=== PATIENT | female | born 1940 | race Caucasian/White ===

== ENCOUNTER 2017-01-24 08:36 | Day surgery (SDC) | payer MEDICARE, OTHER ==
[~2017-01-24] VITALS: Ht 175.3 cm; Wt 67.0 kg
[~2017-01-24 08:36] MED LIST: 0.9% Sodium Chloride 1,000 ML IV SCH; Sodium Chloride LOK Flush 10 mL Syringe IV PRN; fentaNYL-PF 50 mCg/mL 2 mL Inj IVPUSH PRN
[2017-01-24 09:09] VITALS: BP 115/72; PULSE 64; RESP 16; O2SAT 69
[2017-01-24] MEDS ORDERED: CHOL100043 PO (09:16)
[2017-01-24] MEDS ORDERED: MELO-253 PO (09:16)
[2017-01-24] MEDS ORDERED: CLOP75TA28 PO (09:16)
[2017-01-24] MEDS ORDERED: VIT1CAPS8 PO (09:16)
[2017-01-24] MEDS ORDERED: MULT1CAP33 PO (09:16)
[2017-01-24] MEDS ORDERED: AMLO1TAB20 PO (09:16)
[2017-01-24] MEDS ORDERED: OMEG1000 PO (09:16)
[2017-01-24] MEDS ORDERED: OXYB5TAB PO (09:16)
--- NOTE | 2017-01-24 10:01 | PCM.ENDCOL ---
Colonoscopy Date of Service: January 24, 2017 Physician Neal Cutler MD Pre Procedure Diagnosis: Screening Post Procedure Dx & Findings: Polyp hemorrhoids diverticuli patch of colitis Procedure Colonoscopy PROCEDURE IN DETAIL: Prep adequate Withdrawal time 9 minutes After unremarkable rectal examination the Olympus video colonoscope was inserted patient's anal canal and was advanced to cecum. Landmarks were identified including the ileocecal valve and appendiceal orifice. Scope was withdrawn systematically. Visualized colonic mucosa showed healthy shiny mucosa with normal healthy-appearing vasculature. In the descending colon there were 2 polyps. These were about 1 mm in size. These were both resected completely using cold forceps. 30 cm from the anal verge, there was a 4 cm patch of inflammation and redness edema. This was biopsied. Diverticuli mostly in the sigmoid however a few isolated ones are found all the way to the ascending colon. In the rectum retroflexion was done which showed hemorrhoids. Anal canal was inspected carefully on the way out and hemorrhoids noted. Impression Polyp 2 status post complete removal Diverticuli Patch of colitis Hemorrhoids Recommendation Repeat colonoscopy 5 years Diverticula diet Presedation Assessment Risks and Benefits Informed consent was obtained from the patient after all risks and benefits including but not limited to drug reaction, infection, pain, bleeding, perforation, as well as alternatives were discussed. Patient monitoring Continuous pulse oximetry, cardiac monitoring, blood pressure monitoring, IV access, and oxygen at 2L per nasal cannula. Periprocedural Fentanyl: Fentanyl 50mcg Incrementally Midazolam: Midazolam 3mg Incrementally Complications There were no periprocedural complications identified. Post Procedure Plan Post Procedure Recommendations 1. Restrict activities today. 2. Resume normal activities in the morning. 3. Resume medications. 4. Patient informed of normal post procedure side effects as bloating, drowsiness, blood streaking in the stool. 5. average risk CRCS. If colon polyps come back as: -Hyperplastic- can repeat colonoscopy in 10 years -Tubular adenoma- repeat colonoscopy in 5 years -Tubulovillous/villous adenoma- repeat colonoscopy in 3 years -If any dysplasia- return to clinic as soon as possible 6. Please don't hesitate to call me with any questions. Neal Cutler MD January 24, 2017 10:01
[2017-01-24 10:03] VITALS: BP 105/66; PULSE 58; RESP 14; O2SAT 98
[2017-01-24 10:13] VITALS: BP 110/61; PULSE 56; RESP 16; O2SAT 98
[2017-01-24 10:23] VITALS: BP 123/70; PULSE 55; RESP 14; O2SAT 97
[2017-01-24 10:27] VITALS: BP 133/73; PULSE 70; RESP 16; O2SAT 100
--- NOTE | 2017-01-25 10:50 | PATH ---
SURGICAL PATHOLOGY Attending Physician:Neal Cutler M.D. CASE STATUS: Signed Out PATIENT NAME: ADRY KANG PID: [id number] : 1940 DATE COLLECTED:01/24/2017 21:43 SPECIMEN: 1: Colon, Biopsy 2: Colon, Biopsy CLINICAL HISTORY: 1). DESCENDING COLON POLYPS 2). COLON BIOPSY AT 30CM FINAL DIAGNOSIS: 1.DESCENDING COLON POLYPS: TUBULAR ADENOMA, 1. HYPERPLASTIC POLYP, 1. 2.COLONIC BIOPSY AT 30 CM: BENIGN COLONIC MUCOSA WITH ISCHEMIC-PATTERN INJURY, SEE COMMENT. NEGATIVE FOR DYSPLASIA AND MALIGNANCY. ICD10 D12.4 K55.9 NOTE: The histologic pattern of ischemic colitis can be seen in several clinical settings, including atherosclerosis, low-flow states secondary to hypotension, adhesions, infection, and drugs. Clinical and endoscopic correlation is necessary to interpret the significance of the histologic findings in this patient. GROSS DESCRIPTION: The specimen is received in two formalin filled containers labeled with the patient's name. 1). The specimen is sublabeled "descending colon polyps" and consists of 2 portions of tissue which aggregate to 0.3 x 0.2 x 0.2 CM. The specimen is entirely submitted in cassette 1A. 2). The specimen is sublabeled "colon BX at 30 CM" and consists of 2 portions of tissue which aggregate to 0.3 x 0.3 x 0.2 CM. The specimen is entirely submitted in cassette 2A. 01/24/2017 DAC MICRO DESCRIPTION: See diagnosis. ICD-9 CODES: CPT CODES: 1: 65974 2: 38482 Electronically Signed Out Olive Denton MD [facility] [address], [place] [address] Technical component performed at [facility], [address] [place] [address] Ave[address], [place], [address]
== END 2017-01-24 23:59 | disposition home or self-care (01) ==
LOC: END 08:36
PROVIDERS: ATTEND Internal Medicine
DX: Z12.11 Encounter for screening for malignant neoplasm of colon (principal); D12.4 Benign neoplasm of descending colon; K57.30 Diverticulosis of large intestine without perforation or abscess without bleeding; K64.8 Other hemorrhoids; K55.9 Vascular disorder of intestine, unspecified
CPT/HCPCS: 45380; 88305; G0500; J7030

== ENCOUNTER 2017-03-10 07:17 | Day surgery (SDC) | payer MEDICARE, OTHER ==
[~2017-03-10] VITALS: Ht 175.3 cm; Wt 67.6 kg
[~2017-03-10 07:17] MED LIST changes: +AMLO1TAB20 PO; +CHOL100043 PO; +CLOP75TA28 PO; +MELO-253 PO; +MULT1CAP33 PO; +OMEG1000 PO; +OXYB5TAB PO; +VIT1CAPS8 PO
[2017-03-10 07:39] VITALS: BP 129/78; PULSE 58; O2SAT 99
--- NOTE | 2017-03-10 08:15 | PCM.ENDEGD ---
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 Scope introduced esophagus. Esophagus showed normal shiny whitish mucosa consistent with squamous cell component. Z line was at 40 cm from the incisors. It was a Schatzki's ring lumen site was about 14-15 mm in size. In the middle there was a 1 cm clean- based ulcer. Small bowel biopsy obtained. Patient also had superficial erosions proximally from the Schatzki's ring. Scope further advanced into the stomach. The body and antrum reveals significant redness atrophy and mild edema consistent with diffuse gastropathy. Small bowel biopsies obtained. Cardia fundus body antrum pylorus were all visualized. Retroflexion was done. Stomach was easily inflated and deflatable using air. Scope further events to the distal duodenum. Duodenum revealed normal villous structures with normal appearing folds without any mass ulcer erosion. 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 Patient monitoring Continuous pulse oximetry, cardiac monitoring, blood pressure monitoring, IV access, and oxygen at 2L per nasal cannula. Complications There were no periprocedural complications identified. Post Procedure Plan Post Procedure Recommendations 1. Restrict activities today. 2. Resume normal activities in the morning. 3. Resume medications. 4. GERD behavioral modification: - Avoid fatty, acidic, spicy, large meals - Do not lie down after meals - Do not eat or drink anything for at least 2 1/2 hours before going to bed at night - Discontinue tobacco and alcohol - Decrease or avoid caffeine - Avoid chocolate and mints - Decrease weight - Avoid aspirin and non steroidal anti-inflammatory agents (NSAID) such as Aleve, Advil, Mobic, Naproxen, Ibuprofen, etc 5. Add proton pump inhibitor. Take 30 minutes before 1st meal of the day. 6. Patient informed of normal post procedure side effects as bloating, drowsiness, blood streaking in the stool 7. If gastric biopsy reveal H.pylori, continue with appropriate treatment 8. If small bowel biopsy reveals celiac, continue with appropriate treatment 9. Please don't hesitate to call me with any questions Neal Cutler MD Mar 10, 2017 08:15
[2017-03-10 08:20] VITALS: BP 101/60; PULSE 63; RESP 14; O2SAT 94
[2017-03-10 08:29] VITALS: BP 98/62; PULSE 58; RESP 16; O2SAT 95
[2017-03-10 08:34] VITALS: BP 118/67; PULSE 58; RESP 16; O2SAT 96
--- NOTE | 2017-03-17 09:30 | PATH ---
SURGICAL PATHOLOGY Attending Physician:Neal Cutler M.D. CASE STATUS: Signed Out PATIENT NAME: ADRY KANG PID: [id number] : 1940 DATE COLLECTED:03/10/2017 15:13 SPECIMEN: 1: Gastric, Biopsy 2: Esophagus, Biopsy CLINICAL HISTORY: 1. GASTRIC BX R/O POSSIBLE H.PYLORI 2. GE JUNCTION BX FINAL DIAGNOSIS: 1. Gastric Biopsy: Portion of gastric body-type mucosa with mild chronic gastritis. No definite H. pylori organisms identified. Immunohistochemistry studies pending; results will be reported as an addendum. Negative for intestinal metaplasia, dysplasia, and malignancy. 2. GE Junction, Biopsy: Squamocolumnar junctional mucosa with focal, active esophagitis. A fungal stain is pending; results will be reported as an addendum. Negative for intestinal metaplasia, dysplasia, and malignancy. ICD10: K20.9 GROSS DESCRIPTION: The specimens are received in formalin, labeled with the patient's name, and sublabeled as the following: (1) gastric Bx; (2) Ge junction Bx. (1) The specimen consists of multiple fragments of schumacher-white rubbery glistening semitranslucent tissue (0.4 x 0.2 x 0.1 cm in aggregate). Section code: (1A) tissue. Specimen entirely submitted. (2) The specimen consists of multiple fragments of costa-white translucent glistening tissue (0.4 x 0.2 x 0.1 cm in aggregate). Section code: (2A) tissue. Specimen entirely submitted. 03/10/17 ICD-9 CODES: CPT CODES: 1: 33235, 60706, 14295 2: 36927 PROCEDURE/ADDENDA: Addendum SPI Addendum Diagnosis 1. Stomach, biopsy: Negative for Helicobacter organisms by immunohistochemistry. 2. GE Junction, Biopsy: PAS stain negative for yeast and fungal hyphae. Addendum Comment IMMUNOHISTOCHEMISTRY 1) Immunohistochemistry shows no identifiable Helicobacter organisms. The positive control reacted appropriately. 2) A PAS stain performed to evaluate for the presence of yeast/fungal hyphae is negative. The positive control reacted appropriately. Electronically Signed Out Samm Grier MD, PhD Electronically Signed Out Jacqui Hedz MD [facility] [address], [place] [address] Technical component performed at [facility], [address], [place], [address]
== END 2017-03-10 23:59 | disposition home or self-care (01) ==
LOC: END 07:17
PROVIDERS: ATTEND Internal Medicine
DX: K22.10 Ulcer of esophagus without bleeding (principal); K22.2 Esophageal obstruction; R13.10 Dysphagia, unspecified; Z79.02 Long term (current) use of antithrombotics/antiplatelets; Z79.899 Other long term (current) drug therapy; K29.50 Unspecified chronic gastritis without bleeding
CPT/HCPCS: 43239; 88305; 88312; 88342; G0500; J2250; J3010; J7030